=== PATIENT | male | born 1955 | race Hispanic/Latino ===

== ENCOUNTER 2019-06-12 | Day surgery (SDC) | payer MEDICARE ==
[~2019-06-12] MED LIST: ASPIRIN LOW DOS81 M1 PO; GABAPENTIN100 MG PO; LEVOTHYROXIN50 MCG PO; LISINOP/HCTZ1 TA1 PO; LOPID600 MG PO; METFORMIN500 MG PO; OMEPRAZOLE DR40 MG PO; TRAZODONE50 MG PO; VITAMIN B-12500 MCG PO; VITAMIN D2000 UNI3 PO
== END 2019-06-12 11:00 | disposition home or self-care (01) ==
PROC: 0DJD8ZZ Inspection of Lower Intestinal Tract, Via Natural or Artificial Opening Endoscopic (ICD-10-PCS; principal; 2019-06-12)
PROC: 0DJ08ZZ Inspection of Upper Intestinal Tract, Via Natural or Artificial Opening Endoscopic (ICD-10-PCS; 2019-06-12)
DX: Z12.11 Encounter for screening for malignant neoplasm of colon (principal); K57.30 Diverticulosis of large intestine without perforation or abscess without bleeding; K64.8 Other hemorrhoids; R10.13 Epigastric pain; R10.12 Left upper quadrant pain; E11.9 Type 2 diabetes mellitus without complications
CPT/HCPCS: 43235; G0121